=== PATIENT | male | born 1945 | race Caucasian/White ===

== ENCOUNTER → 2019-02-18 09:24 | Day surgery (SDC) | payer MEDICARE, OTHER ==
[~2019-02-18 09:24] MED LIST: Acetaminophen TAB* 325 MG PO PRN; Flumazenil* 0.1 MG/ML 5 ML MDV ONE; Lidocaine 1% INJ* 10 MG/ML 30 ML SDV ONE; Midazolam* 1 MG/ML 5 ML VIAL (5 MG) ONE; Naloxone* 0.4 MG/ML 1 ML VIAL ONE; ceFAZolin 2 GM in NS 100 ml - ONCE (Pharmacy Admix) IVPB ONE; ceFAZolin VIAL 1 GM in NS *SYRINGE * * 10 ML ONE; fentaNYL* 50 MCG/ML 2 ML VIAL (100 MCG VIAL) ONE
[2019-02-18 12:17] VITALS: BP 137/76
--- NOTE | 2019-02-18 16:43 | OP ---
CC: Dr. Carlotta Loving * DATE OF OPERATION: 02/18/19 - [facility] CATH DATE OF : 49 SURGEON: Kike Workman MD. ANESTHESIA: Local anesthesia with conscious sedation. PRE-OP DIAGNOSIS: Hypertrophic cardiomyopathy, ICD at elective replacement indicator. POST-OP DIAGNOSIS: Hypertrophic cardiomyopathy, ICD at elective replacement indicator. OPERATIVE PROCEDURE: Dual-chamber ICD generator change. ESTIMATED BLOOD LOSS: None. COMPLICATIONS: None. INDICATIONS: The patient is a 73-year-old gentlemen with a history of mitral and valve repairs at [facility] in 2013. At that time, he became pacemaker-dependent and a dual-chamber ICD was implanted. At that time, he had a Medtronic model [id number]. The patient has been followed by my office. He reached elective replacement indicator, a new generator was recommended. DESCRIPTION OF PROCEDURE: The patient was brought to procedure room in a fasting state. Informed consent had been obtained prior to procedure all labs have been reviewed. The patient was placed supine on the procedure table. His left deltopectorals was cleaned and draped in the usual fashion. 1% lidocaine used for local anesthesia. A 4.5 cm incision was made at the superior aspect of the device and blunt dissection was carried down to the fibrous sheet. The fibrous sheet was opened and a ICD was removed from the pocket. The ICD was detached from the old device and the leads were attached to a new dual-chamber Medtronic ICD. The new device is a model number [id number], serial number [id number]. The device was placed in the pocket. The surgical incision was closed in 3 layers. The ICD was interrogated and the right atrial and right ventricular leads were functioning normally. The tachycardia parameters were activated. The patient tolerated the procedure well with no complications. [id number]/[facility] #: [id number] [facility]
== END | disposition home or self-care (01) ==
LOC: CHICATH 09:24
PROVIDERS: ATTEND Specialist
DX: Z45.02 Encounter for adjustment and management of automatic implantable cardiac defibrillator (principal); I42.2 Other hypertrophic cardiomyopathy; I08.0 Rheumatic disorders of both mitral and aortic valves; R94.31 Abnormal electrocardiogram [ECG] [EKG]; R07.9 Chest pain, unspecified; Z85.46 Personal history of malignant neoplasm of prostate; Z87.891 Personal history of nicotine dependence
CPT/HCPCS: 33263; 88300; 99156; 99157; C1721; J0690; J2250; J2310; J3010